=== PATIENT | male | born 1965 | race Caucasian/White ===

== ENCOUNTER 2017-07-14 17:06 | Emergency (ER) | payer BC ==
[~2017-07-14] VITALS: Ht 172.7 cm; Wt 99.8 kg
[2017-07-14] MEDS ORDERED: HYDROCHLOROTH12.5 M1 PO (17:41)
[2017-07-14] MEDS ORDERED: CRESTOR5 MG PO (17:41)
[2017-07-14] MEDS ORDERED: TRAMADOL 50 MG50 MG PO (18:44)
[2017-07-14] MEDS ORDERED: ZOFRAN ODT4 MG PO (18:44)
[2017-07-14 18:57] VITALS: BP 136/98
== END 2017-07-14 18:58 | disposition home or self-care (01) ==
LOC: M.ERS 17:06
DX: K04.7 Periapical abscess without sinus (principal); I10 Essential (primary) hypertension